=== PATIENT | male | born 1980 | race Caucasian/White ===

== ENCOUNTER 2017-11-19 20:44 | Emergency (ER) | payer OTHER ==
[~2017-11-19] VITALS: Ht 182.9 cm; Wt 106.6 kg
--- NOTE | 2017-11-19 23:21 | Diagnostic Imaging Report ---
EXAM: CHEST 2 VIEWS, PA and lateral DATE: 11/19/2017 9:47 PM Time stamp on exam: 2204 hours INDICATION: Elevated BP, recent bronchitis COMPARISON: None FINDINGS: LINES/TUBES: None LUNGS: No consolidations or edema. PLEURA: No effusions or pneumothorax. HEART AND MEDIASTINUM: Normal size and contour. BONES AND SOFT TISSUES: No acute findings. IMPRESSION: No acute thoracic abnormality. Signed by: Dr. Missy Castorena M.D. on 11/19/2017 11:18 PM
[2017-11-20 02:59] VITALS: BP 149/89
== END 2017-11-20 04:37 | disposition home or self-care (01) ==
LOC: ER 20:44
DX: I10 Essential (primary) hypertension (principal); E11.9 Type 2 diabetes mellitus without complications
CPT/HCPCS: 71020; 93005; 99283